=== PATIENT | male | born 1930 | race Caucasian/White ===

== ENCOUNTER → 2019-05-01 | Outpatient (CLI) | payer MEDICARE ==
[~2019-05-01] MED LIST: ACET65TA OR; AMLO10TAB OR; LEVO112T OR; LISI20TA5 OR; MULTIVIT OR; OXYB5TAB5 OR; PROS5TAB OR; SPIR50TA2 OR; VITA250T OR; WARF1TAB OR; [UNRECOGNIZED DRUG - OTHER] OR; osteo biflex OR
--- NOTE | 2019-05-01 14:00 | REP ---
Clinical: Chest wall contusion. Technique: PA and lateral. Comparison: 01/23/2012. Findings: Cardiomegaly and single lead pacemaker. Lung gonzales demonstrate diffuse chronic interstitial changes. No obvious consolidation/contusion, effusion, or pneumothorax. Skeletal structures demonstrate age-related osteopenia and degenerative changes. Impression: Chronic cardiomegaly and diffuse chronic interstitial changes. No acute cardiopulmonary process appreciated. Electronically Signed by Naveed Hsu MD 05/01/2019 01:52 P
== END ==
LOC: M WUC 13:35
PROVIDERS: ATTEND Physician Assistant
DX: S20.212A Contusion of left front wall of thorax, initial encounter (principal); X58.XXXA Exposure to other specified factors, initial encounter; Y92.89 Other specified places as the place of occurrence of the external cause; I51.7 Cardiomegaly; Z95.0 Presence of cardiac pacemaker

== ENCOUNTER → 2019-09-16 | Outpatient (REF) | payer MEDICARE ==
[2019-09-16 13:22] LABS: PROTHROMBIN TIME 55.8 SECONDS (11.8-14.0)
[2019-09-16 13:33] LABS: INR 6.24
== END ==
LOC: M LAB REF 12:18
PROVIDERS: ATTEND Nurse Practitioner Adult Health
DX: I48.21 Permanent atrial fibrillation (principal); Z79.01 Long term (current) use of anticoagulants

== ENCOUNTER → 2019-10-06 | Outpatient (CLI) | payer MEDICARE ==
[~2019-10-06] MED LIST changes: +E-Z-GAS II EFFERVESCENT PACKET (SODIUM BICARB./CITRIC ACID/SIMETHICONE) As Ordered ONE; +E-Z-HD 98% w/w 340GM SUSP BTL As Ordered ONE; +E-Z-PAQUE 96% w/w SUSP 176GM BTL As Ordered ONE
--- NOTE | 2019-10-06 16:15 | REP ---
Upper GI air contrast The procedure was performed under the direct supervision of Dr. Philip. The images were reviewed with Dr. Philip The flight radio operator film shows no organomegaly or pathological masses. The intestinal gas pattern is non-specific. There are surgical clips noted in the right upper quadrant. There is a single pacer lead wire identified. In Liquid barium and gas producing crystals were given in the erect position as well as liquid barium in the prone oblique position in order to perform a double contrast upper GI examination. The oral and pharyngeal stages of deglutition are unremarkable. There are esophageal transport there are tertiary waves demonstrated. There is no esophagitis, stricture or mucosal ring. There is a sliding type hiatal hernia. Gastroesophageal reflux is not demonstrated on this examination. The stomach ramos are normally outlined . The rugal folds are smooth and regular. There is no gastritis, neoplasm or ulcer disease. The duodenal ramos are normally outlined . The mucosal folds are smooth and regular. There is no duodenitis, peptic ulcer disease or neoplasm. The visualized portion of the proximal small bowel appears normal in course and caliber. Impression: 1. Tertiary waves. 2. There is a sliding type hiatal hernia. 1.7 minutes of fluoro time was utilized for this procedure. Electronically Signed by MITCH Leigh 10/06/2019 03:53 P Electronically Signed by Ken Philip MD 10/06/2019 04:07 P
== END ==
LOC: M RAD 08:29
PROVIDERS: ATTEND Internal Medicine
DX: R68.81 Early satiety (principal); K44.9 Diaphragmatic hernia without obstruction or gangrene